=== PATIENT | male | born 1970 | race Caucasian/White ===

== ENCOUNTER 2016-10-29 14:31 | Inpatient (IN) | payer OTHER ==
[~2016-10-29] VITALS: Ht 177.8 cm; Wt 97.3 kg
[2016-10-29] MEDS ORDERED: VANCOMYCIN PER PHARMACY IV ONE (15:30)
[2016-10-29] MEDS ORDERED: PIPERACILLIN/TAZO/PMX 3.375GM 50 ML IVPB ONE (15:30)
[2016-10-29] MEDS ORDERED: SODIUM CHLORIDE FLUSH 10ML SYR IVF ONE (15:30)
[2016-10-29] MEDS ORDERED: MORPHINE SULFATE 4 MG/ML, 1ML IVPush PRN (15:30)
[2016-10-29] MEDS ORDERED: CLINDAMYCIN PMX 900MG/50ML 50 ML IV ONE (15:30)
[2016-10-29] MEDS ORDERED: SODIUM CHLORIDE 0.9% 1,000ML IVBOLUS ONE (15:30)
[2016-10-29] MEDS ORDERED: MORPHINE SULFATE 4 MG/ML, 1ML ONE (15:33)
[2016-10-29] MEDS ORDERED: PIPERACILLIN/TAZO/PMX 3.375GM 50 ML ONE (15:33)
[2016-10-29] MEDS ORDERED: CLINDAMYCIN PMX 900MG/50ML 0 ML ONE (15:34)
[2016-10-29] MEDS ORDERED: VANCOMYCIN 1,500 MG in SODIUM CHLORIDE 0.9% 250 ML IV ONE (16:00)
[2016-10-29] MEDS ORDERED: DIPH,PERTUSS(ACELL),TET VAC/PF 0.5 ML IM-VACC ONE ×2 (16:00→17:11)
[2016-10-29 16:46] LABS: HEMOGLOBIN 13.4 g/dL (13.7-18.0); WHITE BLOOD COUNT 12.7 x10^3/uL (3.4-10)
[2016-10-29 16:54] LABS: ASPARTATE AMINO TRANSFERASE 7 U/L (15-37); BLOOD UREA NITROGEN 10 mg/dL (7-18)
[2016-10-29] MEDS ORDERED: MIDAZOLAM 1 MG/ML, 2ML ONE (17:45)
[2016-10-29] MEDS ORDERED: FENTANYL PF 100 MCG/2ML ONE ×2 (17:45→18:25)
[2016-10-29] MEDS ORDERED: ROCURONIUM 10 MG/ML ONE (17:46)
[2016-10-29] MEDS ORDERED: SUCCINYLCHOLINE 20 MG/ML, 10ML ONE (17:46)
[2016-10-29] MEDS ORDERED: PROPOFOL 10 MG/ML, 20ML ONE (17:46)
[2016-10-29] MEDS ORDERED: DEXAMETHASONE 4 MG/ML, 1ML ONE (17:46)
[2016-10-29] MEDS ORDERED: ONDANSETRON 2MG/ML, 2ML ONE ×2 (17:46→19:52)
[2016-10-29] MEDS ORDERED: CEFAZOLIN 1,000 MG ONE (17:46)
[2016-10-29] MEDS ORDERED: MEPERIDINE/PF 25MG/0.5ML ONE (19:18)
[2016-10-29] MEDS ORDERED: hydrALAzine 20 MG/ML, 1ML IV PRN (19:30)
[2016-10-29] MEDS ORDERED: LABETALOL 5MG/ML, 20ML IV PRN (19:30)
[2016-10-29] MEDS ORDERED: OXYcodone 5 MG/5 ML ORAL.SOL UDC PO PRN (19:30)
[2016-10-29] MEDS ORDERED: ONDANSETRON 2MG/ML, 2ML IVPush PRN ×2 (19:30→21:00)
[2016-10-29] MEDS ORDERED: FENTANYL PF 100 MCG/2ML IV PRN (19:30)
[2016-10-29] MEDS ORDERED: ACETAMINOPHEN 650 MG/20.3 ML UDC ONE (19:30)
[2016-10-29] MEDS ORDERED: HYDROmorphone 1 MG/ML, 1ML IV PRN (19:30)
[2016-10-29] MEDS ORDERED: METOCLOPRAMIDE 5 MG/ML, 2ML IV PRN (19:30)
[2016-10-29] MEDS ORDERED: OXYcodone 5 MG/5 ML ORAL.SOL UDC ONE (19:30)
[2016-10-29] MEDS ORDERED: MEPERIDINE 50 MG TABLET PO PRN (19:30)
[2016-10-29] MEDS ORDERED: ACETAMINOPHEN 325 MG TABLET PO PRN (19:30)
[2016-10-29] MEDS ORDERED: PHARMACOKINETIC MONITORING MC PRN (21:00)
[2016-10-29] MEDS ORDERED: VANCOMYCIN PER PHARMACY MC PRN (21:00)
[2016-10-29] MEDS ORDERED: PHARMACOKINETIC CONSULTATION MC ONE (21:00)
[2016-10-29] MEDS: HYDROmorphone 1 MG/ML, 1ML IV PRN (22:18)
[2016-10-29] MEDS: CLINDAMYCIN PMX 900MG/50ML 50 ML IV SCH (22:18)
[2016-10-29] MEDS: PIPERACILLIN/TAZO/PMX 3.375GM 50 ML IV SCH (23:48)
[2016-10-29] MEDS: D5%-0.9% NACL+KCL 20MEQ 1,000 ML IV SCH (23:51)
[2016-10-30 00:19] VITALS: BP 114/66
[2016-10-30 03:13] VITALS: BP 122/71
[2016-10-30] MEDS ORDERED: VANCOMYCIN 1,500 MG in SODIUM CHLORIDE 0.9% 250 ML IV SCH (04:00)
[2016-10-30] MEDS: HYDROmorphone 1 MG/ML, 1ML IV PRN ×6 (04:44→22:20)
[2016-10-30] MEDS: D5%-0.9% NACL+KCL 20MEQ 1,000 ML IV SCH (05:00)
[2016-10-30 05:37] LABS: HEMATOCRIT 35.3 % (39.2-51.8); HEMOGLOBIN 11.5 g/dL (13.7-18.0); WHITE BLOOD COUNT 10.3 x10^3/uL (3.4-10)
[2016-10-30 05:41] LABS: ASPARTATE AMINO TRANSFERASE 6 U/L (15-37); BLOOD UREA NITROGEN 12 mg/dL (7-18)
[2016-10-30] MEDS: PIPERACILLIN/TAZO/PMX 3.375GM 50 ML IV SCH ×3 (07:19→19:45)
[2016-10-30 07:57] VITALS: BP 130/74
[2016-10-30] MEDS: CLINDAMYCIN PMX 900MG/50ML 50 ML IV SCH ×2 (08:31→15:01)
[2016-10-30] MEDS: OXYcodone/APAP 7.5/325MG TABLET PO PRN ×4 (09:21→23:32)
[2016-10-30] MEDS: SODIUM CHLORIDE FLUSH 10ML SYR IVF SCH ×2 (09:21→19:45)
[2016-10-30 14:15] VITALS: BP 105/60
[2016-10-30 20:02] VITALS: BP 107/63
[2016-10-30] MEDS: VANCOMYCIN 1,900 MG in SODIUM CHLORIDE 0.9% 250 ML IV SCH (22:09)
[2016-10-31] MEDS: CLINDAMYCIN PMX 900MG/50ML 50 ML IV SCH ×3 (00:32→18:24)
[2016-10-31 00:57] VITALS: BP 100/62
[2016-10-31] MEDS: PIPERACILLIN/TAZO/PMX 3.375GM 50 ML IV SCH ×4 (02:03→19:44)
[2016-10-31] MEDS: HYDROmorphone 1 MG/ML, 1ML IV PRN ×7 (02:03→22:40)
[2016-10-31] MEDS: OXYcodone/APAP 7.5/325MG TABLET PO PRN ×5 (03:46→21:34)
[2016-10-31 05:50] LABS: HEMATOCRIT 33.9 % (39.2-51.8); HEMOGLOBIN 11.1 g/dL (13.7-18.0); WHITE BLOOD COUNT 8.8 x10^3/uL (3.4-10)
[2016-10-31 08:08] VITALS: BP 122/74
[2016-10-31] MEDS: SODIUM CHLORIDE FLUSH 10ML SYR IVF SCH ×2 (09:12→19:47)
[2016-10-31 13:42] VITALS: BP 123/67
[2016-10-31] MEDS: VANCOMYCIN 1,900 MG in SODIUM CHLORIDE 0.9% 250 ML IV SCH (16:33)
[2016-10-31 21:16] VITALS: BP 114/57
[2016-11-01] MEDS: OXYcodone/APAP 7.5/325MG TABLET PO PRN ×3 (01:35→09:32)
[2016-11-01] MEDS: HYDROmorphone 1 MG/ML, 1ML IV PRN ×3 (01:35→07:43)
[2016-11-01] MEDS: PIPERACILLIN/TAZO/PMX 3.375GM 50 ML IV SCH ×2 (01:35→07:43)
[2016-11-01] MEDS: CLINDAMYCIN PMX 900MG/50ML 50 ML IV SCH ×2 (02:00→10:00)
[2016-11-01 02:08] VITALS: BP 124/73
[2016-11-01 07:23] VITALS: BP 113/72
[2016-11-01] MEDS: SODIUM CHLORIDE FLUSH 10ML SYR IVF SCH (09:00)
[2016-11-01] MEDS: VANCOMYCIN 1,900 MG in SODIUM CHLORIDE 0.9% 250 ML IV SCH (10:00)
[2016-11-01 10:11] VITALS: BP 145/74
[2016-11-01] MEDS ORDERED: OXYC-306 PO (11:40)
== END 2016-11-01 11:52 | disposition home or self-care (01) | DRG 853 ==
LOC: ED 17:05 → EDIP 17:06 → ED 17:12 → 4NOR 20:31 → DCLOUNGE 11-01 11:31
PROVIDERS: ADMIT Surgery; ATTEND Surgery
PROC: 0JBM0ZZ Excision of Left Upper Leg Subcutaneous Tissue and Fascia, Open Approach (ICD-10-PCS; principal; 2016-10-29 15:30)
DX: A41.9 Sepsis, unspecified organism (principal); M72.6 Necrotizing fasciitis; L02.416 Cutaneous abscess of left lower limb; F15.10 Other stimulant abuse, uncomplicated; B18.2 Chronic viral hepatitis C; E87.6 Hypokalemia; F17.210 Nicotine dependence, cigarettes, uncomplicated; F19.10 Other psychoactive substance abuse, uncomplicated; R65.20 Severe sepsis without septic shock; Z59.0 Homelessness
CPT/HCPCS: 36415; 71010; 80053; 83605; 84145; 85025; 85610; 85730; 87040; 87070; 87075; 87077; 87205; 90471; 90715; 96365; 96375; J0690; J1100; J1170; J2250; J2405; J2543; J2704; J3010; J3370; J0330; J3480; J7030; J7050

== ENCOUNTER 2016-12-10 15:07 | Inpatient (IN) | payer MEDICAID, OTHER ==
[~2016-12-10] VITALS: Ht 180.3 cm; Wt 94.5 kg
[~2016-12-10 15:07] MED LIST: OXYC-306 PO
[2016-12-10] MEDS ORDERED: SODIUM CHLORIDE 0.9% 1,000 ML IV ONE (15:42)
[2016-12-10] MEDS ORDERED: CEFTRIAXONE PMX 1GM/50ML 50 ML IVPB ONE (16:00)
[2016-12-10] MEDS ORDERED: SODIUM CHLORIDE FLUSH 10ML SYR IVF ONE ×2 (16:00→18:00)
[2016-12-10] MEDS ORDERED: SODIUM CHLORIDE 0.9% 1,000ML IVBOLUS ONE ×2 (16:00→18:00)
[2016-12-10] MEDS ORDERED: VANCOMYCIN PER PHARMACY MC ONE (16:00)
[2016-12-10] MEDS ORDERED: ONDANSETRON 2MG/ML, 2ML IVPush ONE (16:00)
[2016-12-10 16:28] LABS: HEMATOCRIT 37.8 % (39.2-51.8); HEMOGLOBIN 12.8 g/dL (13.7-18.0)
[2016-12-10 16:33] LABS: BLOOD UREA NITROGEN 10 mg/dL (7-18)
[2016-12-10] MEDS ORDERED: VANCOMYCIN 1,800 MG in SODIUM CHLORIDE 0.9% 250 ML IV ONE (17:00)
[2016-12-10] MEDS ORDERED: CEFTRIAXONE PMX 1GM/50ML 50 ML ONE (17:10)
[2016-12-10] MEDS ORDERED: HYDROmorphone 1 MG/ML, 1ML ONE ×3 (17:11→20:19)
[2016-12-10] MEDS: HYDROmorphone 1 MG/ML, 1ML IVPush PRN ×2 (17:33→17:55)
[2016-12-10] MEDS ORDERED: FENTANYL PF 100 MCG/2ML ONE ×2 (18:10)
[2016-12-10] MEDS ORDERED: PROPOFOL 10 MG/ML, 20ML ONE (18:10)
[2016-12-10] MEDS ORDERED: MIDAZOLAM 1 MG/ML, 2ML ONE (18:10)
[2016-12-10] MEDS ORDERED: SUCCINYLCHOLINE 20 MG/ML, 10ML ONE (18:10)
[2016-12-10] MEDS ORDERED: KETAMINE 10 MG/ML, 20ML ONE (18:10)
[2016-12-10] MEDS ORDERED: LIDOCAINE-MPF 2% ,5ML ONE (18:11)
[2016-12-10] MEDS ORDERED: ROCURONIUM 10 MG/ML ONE (18:11)
[2016-12-10] MEDS ORDERED: ONDANSETRON 2MG/ML, 2ML ONE (18:11)
[2016-12-10] MEDS ORDERED: OXYcodone 5 MG/5 ML ORAL.SOL UDC ONE (19:46)
[2016-12-10] MEDS ORDERED: PROMETHAZINE 25 MG/ML, 1ML IV PRN (20:00)
[2016-12-10] MEDS ORDERED: FENTANYL PF 100 MCG/2ML IV PRN (20:00)
[2016-12-10] MEDS ORDERED: KETOROLAC 30 MG/1 ML IV PRN (20:00)
[2016-12-10] MEDS ORDERED: OXYcodone 5 MG/5 ML ORAL.SOL UDC PO PRN (20:00)
[2016-12-10] MEDS ORDERED: ACETAMINOPHEN 325 MG TABLET PO PRN (20:00)
[2016-12-10] MEDS ORDERED: MEPERIDINE/PF 25MG/0.5ML IVPush PRN (20:00)
[2016-12-10] MEDS ORDERED: ONDANSETRON 2MG/ML, 2ML IVPush PRN (20:00)
[2016-12-10] MEDS: HYDROmorphone 1 MG/ML, 1ML IV PRN ×4 (20:21→23:13)
[2016-12-10 22:26] VITALS: BP 131/83
[2016-12-11] MEDS: LORazepam 2 MG/ML, 1ML IV PRN ×2 (00:09→23:21)
[2016-12-11] MEDS: OXYcodone/APAP 5/325MG TABLET PO PRN ×6 (00:09→21:23)
[2016-12-11 00:24] VITALS: BP 123/73
[2016-12-11 03:34] VITALS: BP 111/69
[2016-12-11] MEDS: CEFTRIAXONE PMX 1GM/50ML 50 ML IV SCH ×2 (04:38→16:44)
[2016-12-11] MEDS: HYDROmorphone 1 MG/ML, 1ML IV PRN ×7 (05:31→23:21)
[2016-12-11 07:30] VITALS: BP 122/81
[2016-12-11 07:42] VITALS: BP 118/73
[2016-12-11 09:48] LABS: HEMATOCRIT 33.9 % (39.2-51.8); HEMOGLOBIN 11.2 g/dL (13.7-18.0); WHITE BLOOD COUNT 12.6 x10^3/uL (3.4-10)
[2016-12-11 10:01] LABS: ASPARTATE AMINO TRANSFERASE 14 U/L (15-37); BLOOD UREA NITROGEN 11 mg/dL (7-18)
[2016-12-11] MEDS ORDERED: POTASSIUM CHLORIDE 20 MEQ TAB.ER.PRT PO ONE (12:00)
[2016-12-11 16:08] VITALS: BP 97/56
[2016-12-11 19:38] VITALS: BP 115/72
[2016-12-12 00:35] VITALS: BP 130/76
[2016-12-12] MEDS: CEFTRIAXONE PMX 1GM/50ML 50 ML IV SCH (04:19)
[2016-12-12] MEDS: HYDROmorphone 1 MG/ML, 1ML IV PRN ×5 (04:20→13:54)
[2016-12-12] MEDS: OXYcodone/APAP 5/325MG TABLET PO PRN ×3 (06:33→14:06)
[2016-12-12 07:25] VITALS: BP 125/80
[2016-12-12] MEDS: LORazepam 2 MG/ML, 1ML IV PRN (10:05)
[2016-12-12] MEDS ORDERED: PHARMACOKINETIC CONSULTATION MC ONE (11:30)
[2016-12-12] MEDS ORDERED: LIDOCAINE 2%, 2ML INFIL ONE (11:30)
[2016-12-12] MEDS ORDERED: VANCOMYCIN PER PHARMACY MC PRN (11:30)
[2016-12-12] MEDS ORDERED: PHARMACOKINETIC MONITORING MC PRN (11:30)
[2016-12-12] MEDS ORDERED: LIDOCAINE GEL 2%, 5ML TP ONE (12:00)
[2016-12-12] MEDS ORDERED: VANCOMYCIN 1,600 MG in SODIUM CHLORIDE 0.9% 250 ML IV SCH (13:00)
[2016-12-12 14:04] VITALS: BP 119/74
[2016-12-12] MEDS ORDERED: MIDAZOLAM 1 MG/ML, 2ML ONE (15:11)
[2016-12-12] MEDS ORDERED: LIDOCAINE GEL 2%, 5ML ONE (15:11)
[2016-12-12] MEDS ORDERED: FENTANYL PF 500 MCG/10ML ONE ×2 (15:11→15:47)
[2016-12-12] MEDS ORDERED: ONDANSETRON 2MG/ML, 2ML ONE (15:12)
[2016-12-12] MEDS ORDERED: DEXAMETHASONE 4 MG/ML, 1ML ONE (15:12)
[2016-12-12] MEDS ORDERED: PROPOFOL 10 MG/ML, 20ML ONE (15:12)
[2016-12-12] MEDS ORDERED: MIDAZOLAM 1 MG/ML, 2ML IV PRN (15:30)
[2016-12-12] MEDS ORDERED: ALBUTEROL/IPRATROPIUM 2.5MG/0.5MG, 3 ML NPPB PRN (15:30)
[2016-12-12] MEDS ORDERED: MEPERIDINE/PF 25MG/0.5ML IVPush PRN (15:30)
[2016-12-12] MEDS ORDERED: LORazepam 2 MG/ML, 1ML IVPush PRN (15:30)
[2016-12-12] MEDS ORDERED: HYDROmorphone 1 MG/ML, 1ML IV PRN (15:30)
[2016-12-12] MEDS ORDERED: METOCLOPRAMIDE 5 MG/ML, 2ML IV PRN (15:30)
[2016-12-12] MEDS ORDERED: LABETALOL 5MG/ML, 20ML IV PRN (15:30)
[2016-12-12] MEDS ORDERED: PROMETHAZINE 25 MG/ML, 1ML IV PRN (15:30)
[2016-12-12] MEDS ORDERED: ONDANSETRON 2MG/ML, 2ML IVPush PRN (15:30)
[2016-12-12] MEDS ORDERED: hydrALAzine 20 MG/ML, 1ML IV PRN (15:30)
[2016-12-12] MEDS ORDERED: OXYcodone 5 MG/5 ML ORAL.SOL UDC PO PRN (15:30)
[2016-12-12] MEDS ORDERED: DIAZEPAM 5 MG/ML, 2ML IVPush PRN (15:30)
[2016-12-12] MEDS ORDERED: ACETAMINOPHEN 325 MG TABLET PO PRN (15:30)
[2016-12-12] MEDS ORDERED: FENTANYL PF 100 MCG/2ML ONE (16:00)
[2016-12-12] MEDS: FENTANYL PF 100 MCG/2ML IV PRN ×2 (16:30→16:37)
[2016-12-12] MEDS ORDERED: ACETAMINOPHEN 650 MG/20.3 ML UDC ONE (16:32)
[2016-12-12] MEDS ORDERED: OXYcodone 5 MG/5 ML ORAL.SOL UDC ONE (16:33)
== END 2016-12-12 17:42 | disposition left against medical advice (07) | DRG 854 ==
LOC: ED 17:48 → EDIP 17:49 → ED 18:03 → 4NOR 20:50
PROVIDERS: ADMIT Internal Medicine; ATTEND Internal Medicine
PROC: 0JB90ZZ Excision of Buttock Subcutaneous Tissue and Fascia, Open Approach (ICD-10-PCS; principal; 2016-12-10 18:15)
PROC: 0JB90ZZ Excision of Buttock Subcutaneous Tissue and Fascia, Open Approach (ICD-10-PCS; 2016-12-12)
DX: A41.9 Sepsis, unspecified organism (principal); L02.31 Cutaneous abscess of buttock; E44.0 Moderate protein-calorie malnutrition; E87.1 Hypo-osmolality and hyponatremia; F11.20 Opioid dependence, uncomplicated; R65.20 Severe sepsis without septic shock; D64.9 Anemia, unspecified; E87.6 Hypokalemia; F15.10 Other stimulant abuse, uncomplicated; D47.3 Essential (hemorrhagic) thrombocythemia; Z87.891 Personal history of nicotine dependence; F19.10 Other psychoactive substance abuse, uncomplicated; F15.90 Other stimulant use, unspecified, uncomplicated
CPT/HCPCS: 36415; 72170; 80048; 80053; 82040; 83605; 85025; 85610; 85730; 87015; 87040; 87070; 87075; 87102; 87116; 87205; 87206; 96365; 96375; J0696; J1100; J1170; J2250; J2405; J2704; J3010; J3370; J3490; J0330; J2060; J7030; J7050

== ENCOUNTER 2018-03-29 23:23 | Emergency (ER) | payer SELFPAY ==
[~2018-03-29] VITALS: Ht 180.3 cm; Wt 86.3 kg
[2018-03-29 23:29] VITALS: BP 145/84
--- NOTE | 2018-03-29 23:36 | NUR ---
PT AMBULATED WITH STEADY GAIT TO ROOM FROM TRIAGE.
--- NOTE | 2018-03-29 23:48 | NUR ---
PT REPORTS HE SLIPPED DOWN SOME STEEP STAIRS A FEW HOURS AGO, LANDED ON HIS BUTTOCK, DENIES HITTING HIS HEAD. PT REPORTS PRIOR CHRONIC BACK PAIN SINCE AN ACCIDENT IN THE PAST BUT THIS BACK PAIN IS "MUCH WORSE." PT SITTING UP IN BED, APPEARS TO BE PAINFUL. PT REPORTS PAIN WITH MOVEMENT. PT A/OX4, BREATHING E/U. PT AWAITING MD PYLE.
--- NOTE | 2018-03-29 23:52 | NUR ---
PROVIDER TO BEDSIDE FOR PT EVAL COMPLETE. AWAITING ORDERS.
[2018-03-30] MEDS ORDERED: METHOCARBAMOL 750 MG TABLET PO ONE
[2018-03-30] MEDS ORDERED: KETOROLAC 30 MG/1 ML IM ONE
[2018-03-30] MEDS ORDERED: KETOROLAC 30 MG/1 ML ONE (00:10)
[2018-03-30] MEDS ORDERED: METHOCARBAMOL 750 MG TABLET ONE (00:10)
--- NOTE | 2018-03-30 00:24 | NUR ---
PT RECIEVED MEDS PER ORDERS, SEE EMAR. PT TOLERATED WELL. PT SITTING UP IN CHAIR AT BEDSIDE WATCHING TV. AWAITING IMAGING RESULTS. WILL MONITOR.
--- NOTE | 2018-03-30 00:27 | NUR ---
report to josefina curran for lunch relief.
--- NOTE | 2018-03-30 01:04 | NUR ---
REPORT FROM JACE GOODE. IMAGING RESULTED. PT PLACED FOR RECHECK.
--- NOTE | 2018-03-30 01:07 | NUR ---
PROVIDER TO BEDSIDE FOR UPDATE.
[2018-03-30] MEDS ORDERED: HYDROcodone/APAP 5/325 TABLET ONE (01:12)
--- NOTE | 2018-03-30 01:14 | NUR ---
PT RECIEVED NORCO PER ORDERS, SEE EMAR. PT TO BE MONITORED FOR 15 MINS PRIOR TO LEAVING. PT VERBALIZED UNDERSTANDING OF D/C INSTRUCTIONS AND MEDS.
[2018-03-30] MEDS ORDERED: HYDROcodone/APAP 5/325 TABLET PO ONE (01:30)
== END 2018-03-30 01:33 | disposition home or self-care (01) ==
LOC: ED 23:48
DX: S39.012A Strain of muscle, fascia and tendon of lower back, initial encounter (principal); Z72.9 Problem related to lifestyle, unspecified; Z86.19 Personal history of other infectious and parasitic diseases; Z87.891 Personal history of nicotine dependence; W10.8XXA Fall (on) (from) other stairs and steps, initial encounter; Y93.89 Activity, other specified; Y92.89 Other specified places as the place of occurrence of the external cause; Y99.8 Other external cause status
CPT/HCPCS: 72110; 96372; 99283; J1885

== ENCOUNTER 2018-04-07 14:57 | Emergency (ER) | payer SELFPAY ==
[~2018-04-07] VITALS: Ht 177.8 cm; Wt 82.0 kg
[2018-04-07 15:18] VITALS: BP 152/100
[2018-04-07] MEDS ORDERED: KETOROLAC 30 MG/1 ML ONE (15:59)
[2018-04-07] MEDS ORDERED: HYDROcodone/APAP 5/325 TABLET ONE (15:59)
[2018-04-07] MEDS ORDERED: CYCLOBENZAPRINE 10 MG TABLET ONE (15:59)
[2018-04-07] MEDS ORDERED: CYCLOBENZAPRINE 10 MG TABLET PO ONE (16:00)
[2018-04-07] MEDS ORDERED: KETOROLAC 30 MG/1 ML IM ONE (16:00)
[2018-04-07] MEDS ORDERED: HYDROcodone/APAP 5/325 TABLET PO ONE (16:00)
== END 2018-04-07 16:36 | disposition home or self-care (01) ==
LOC: ED 16:30
DX: G89.11 Acute pain due to trauma (principal); M54.6 Pain in thoracic spine; M54.2 Cervicalgia; Z87.891 Personal history of nicotine dependence; Z86.19 Personal history of other infectious and parasitic diseases; W19.XXXA Unspecified fall, initial encounter; Y93.89 Activity, other specified; Y92.89 Other specified places as the place of occurrence of the external cause; Y99.8 Other external cause status
CPT/HCPCS: 72050; 73030; 96372; 99283; J1885

== ENCOUNTER 2018-05-18 12:53 | Inpatient (IN) | payer OTHER ==
[~2018-05-18] VITALS: Ht 177.8 cm; Wt 80.4 kg
[2018-05-18] MEDS ORDERED: PIPERACILLIN/TAZO/PMX 3.375GM 50 ML IVPB ONE (13:30)
[2018-05-18] MEDS ORDERED: HYDROmorphone 1 MG/ML, 1ML IVPush PRN (13:30)
[2018-05-18] MEDS ORDERED: VANCOMYCIN PER PHARMACY MC ONE (13:30)
[2018-05-18 13:55] LABS: BASOPHILS # (AUTO) 0.03 x10^3/uL (0-0.1); BASOPHILS % (AUTO) 0 % (0-1); EOSINOPHILS # (AUTO) 0.12 x10^3/uL (0-0.4); EOSINOPHILS % (AUTO) 1 % (1-7); LYMPHOCYTES # (AUTO) 1.29 x10^3/uL (1-3.4); LYMPHOCYTES % (AUTO) 9 % (22-44); MD NO; MEAN CORPUSCULAR HEMOGLOBIN 30.2 pg (27.5-34.5); MEAN CORPUSCULAR HGB CONC 33.8 g/dL (33.2-36.2); MEAN CORPUSCULAR VOLUME 89.6 fL (81-97); MEAN PLATELET VOLUME 7.5 fL (7.4-10.4); MONOCYTES # (AUTO) 0.71 x10^3/uL (0.2-0.8); MONOCYTES % (AUTO) 5 % (2-9); NEUTROPHILS # (AUTO) 11.76 x10^3/uL (1.8-6.8); NEUTROPHILS % (AUTO) 85 % (42-75); PLATELET COUNT 450 x10^3/uL (130-400); RED CELL DISTRIBUTION WIDTH 13.7 % (9.4-14.8)
[2018-05-18] MEDS ORDERED: VANCOMYCIN 1,600 MG in SODIUM CHLORIDE 0.9% 250 ML IV ONE (14:00)
[2018-05-18 14:06] LABS: ALANINE AMINOTRANSFERASE 17 U/L (12-78); ALBUMIN 2.5 g/dL (3.4-5.0); ANION GAP 7 mmol/L (5-15); CALCIUM 8.5 mg/dL (8.5-10.1); CHLORIDE 101 mmol/L (98-107); CREATININE 1.17 mg/dL (0.7-1.3)
[2018-05-18 14:08] LABS: ALKALINE PHOSPHATASE 97 U/L (45-117); BILIRUBIN,TOTAL 0.4 mg/dL (0.2-1.0); TOTAL PROTEIN 8.2 g/dL (6.4-8.2)
--- NOTE | 2018-05-18 15:06 | NUR ---
RN followed up with lab regarding second blood culture. Lab to come draw.
--- NOTE | 2018-05-18 15:52 | NUR ---
i am assuming care of this pt from chad (bina) at this time. sbar report was exchanged at the bedside.
--- NOTE | 2018-05-18 16:02 | NUR ---
TASK RN: PT IS RESTING IN ROOM WITH NADN, EQUAL CHEST RISE AND GOOD CAP REFILL, NADN. NO NEEDS AT THIS TIME.
[2018-05-18] MEDS ORDERED: PROPOFOL 10 MG/ML, 20ML ONE (16:47)
[2018-05-18] MEDS ORDERED: ETOMIDATE 20 MG/10 ML ONE (16:47)
[2018-05-18] MEDS ORDERED: ETOMIDATE 20 MG/10 ML IVPush ONE (17:00)
[2018-05-18 17:26] LABS: HCT (SEDRATE) 34.9 % (39.2-51.8)
[2018-05-18] MEDS ORDERED: LABETALOL 5MG/ML, 20ML IVPush PRN (17:30)
[2018-05-18] MEDS ORDERED: morphine SULFATE 10 MG/ML, 1ML IVPush PRN (17:30)
[2018-05-18] MEDS ORDERED: hydrALAzine 20 MG/ML, 1ML IVPush PRN (17:30)
[2018-05-18] MEDS ORDERED: ACETAMINOPHEN 325 MG TABLET PO PRN (17:30)
[2018-05-18] MEDS ORDERED: VANCOMYCIN PER PHARMACY MC PRN (17:30)
[2018-05-18] MEDS ORDERED: ONDANSETRON 2MG/ML, 2ML IVPush PRN (17:30)
--- NOTE | 2018-05-18 17:41 | NUR ---
I AM ASSUMING CARE OF THIS PT FROM JACE KNOX) AT THIS TIME. SBAR REPORT WAS EXCHANGED AT THE BEDSIDE.
--- NOTE | 2018-05-18 17:59 | NUR ---
PT IS SLEEPING SONOROUSLY ON AN E.R. GURNEY WHILE AWAITING A ROOM ASSIGNMENT FOR ADMISSION. VS ARE STABLE, AND THERE ARE NO ACUTE CHANGES NOTED AT THIS TIME. I WILL CONTINUE TO MONITOR AND TREAT ORDERED, WELL PRN WHILE AWAITING A ROOM ASSIGNMENT FOR ADMISSION.
--- NOTE | 2018-05-18 18:04 | NUR ---
PORCEDURAL SEDATION RN: PT TOLERATED PROCEDURE WELL. A TOTAL OF 240MG OF PROPAFOL WITH 10MG OF ETOMIDATE WERE USED TO SEDATE PT. PT WAS ON ALL MONITORS WITH ETCO2 CONNECTED. PTS VITALS REMAIN STABLE AND NADN. PT RECOVERED VERY QUICKLY AND ABLE TO TAKE SIPS. PTS AIRWAY WAS NEVER COMPROMISED. PT HAD 4 I/DS AND WHICH WERE PACKED AND 1/2" GAUZE AND DRESSED WITH TAPE AND GAUZE. PLEASE SEE MD NOTES IN REGARDS TO PACKING. PT CONNECTED TO MONITORS AND CALL LIGHT IN REACH. PT REPORT GIVEN TO LILI GOODE WHO ASSUMED CARE AT THE END OF RECOVERY.
[2018-05-18] MEDS ORDERED: CEFAZOLIN PMX 1GM/50ML 50 ML ONE (18:38)
[2018-05-18] MEDS ORDERED: PIPERACILLIN/TAZO/PMX 3.375GM 50 ML ONE (18:56)
--- NOTE | 2018-05-18 18:57 | NUR ---
GREG (RN) IS ASSUMING CARE OF THIS PT AT THIS TIME. SBAR REPORT WAS EXCHANGED AT THE BEDSIDE.
[2018-05-18 19:05] VITALS: BP 134/80
--- NOTE | 2018-05-18 19:07 | NUR ---
REPORT RECIEVED FROM RUSSEL PEARSON. ASSUMED CARE OF PT, IS ON CARDIACE MONITOR RESTING WITH EYES CLOSED, SOFT SNORING HEARD. ANTIBIOTIC STARTED, CALL LIGHT IN REACH
--- NOTE | 2018-05-18 19:38 | NUR ---
REPORT GIVEN TO RUSSEL PAPPAS
[2018-05-18] MEDS ORDERED: PHARMACOKINETIC MONITORING MC PRN (20:30)
[2018-05-18 20:35] LABS: AMPHETAMINE SCREEN, URINE Positive (Negative); BARBITURATE SCREEN, URINE Negative (Negative); BENZODIAZEPINE SCREEN, URINE Negative (Negative); CANNABINOID SCREEN, URINE Negative (Negative); COCAINE SCREEN, URINE Negative (Negative); METHADONE SCREEN, URINE Negative (Negative); OPIATE SCREEN, URINE Positive (Negative)
[2018-05-18 21:55] VITALS: BP 137/68
[2018-05-18] MEDS: SODIUM CHLORIDE 0.9% 1,000 ML IV SCH ×2 (22:17)
[2018-05-18] MEDS: HEPARIN 5,000 UNITS/ML, 1ML SQ SCH (22:17)
[2018-05-18] MEDS: HYDROcodone/APAP 5/325 TABLET PO PRN (23:47)
[2018-05-19] MEDS: SODIUM CHLORIDE 0.9% 1,000 ML IV SCH ×4 (00:29→11:31)
[2018-05-19 01:43] VITALS: BP 114/68
[2018-05-19] MEDS: HEPARIN 5,000 UNITS/ML, 1ML SQ SCH ×3 (03:48→20:00)
[2018-05-19] MEDS: PIPERACILLIN/TAZO/PMX 3.375GM 50 ML IV SCH ×2 (03:48→11:30)
[2018-05-19] MEDS: HYDROcodone/APAP 5/325 TABLET PO PRN ×4 (09:42→23:37)
[2018-05-19 14:00] VITALS: BP 126/72
[2018-05-19] MEDS: VANCOMYCIN 1,600 MG in SODIUM CHLORIDE 0.9% 250 ML IV SCH (15:10)
[2018-05-19 19:03] VITALS: BP 104/64
[2018-05-20] MEDS: PIPERACILLIN/TAZO/PMX 3.375GM 50 ML IV SCH ×4 (00:55→20:23)
[2018-05-20] MEDS: SODIUM CHLORIDE 0.9% 1,000 ML IV SCH (00:55)
[2018-05-20 01:29] VITALS: BP 116/64
[2018-05-20] MEDS: VANCOMYCIN 1,600 MG in SODIUM CHLORIDE 0.9% 250 ML IV SCH ×2 (02:36→15:00)
[2018-05-20] MEDS: HEPARIN 5,000 UNITS/ML, 1ML SQ SCH ×3 (04:09→20:00)
[2018-05-20] MEDS: HYDROcodone/APAP 5/325 TABLET PO PRN ×4 (05:09→23:19)
[2018-05-20 08:16] VITALS: BP 118/70
[2018-05-20] MEDS ORDERED: LORazepam 2 MG/ML, 1ML IM PRN (10:30)
[2018-05-20] MEDS ORDERED: LORazepam 1MG TABLET PO PRN (10:30)
[2018-05-20 13:48] VITALS: BP 110/74
[2018-05-20] MEDS ORDERED: SODIUM CHLORIDE 0.9% 1,000 ML IV SCH (17:11)
[2018-05-20 20:46] VITALS: BP 109/64
[2018-05-21 02:02] VITALS: BP 114/72
[2018-05-21] MEDS: VANCOMYCIN 1,600 MG in SODIUM CHLORIDE 0.9% 250 ML IV SCH (02:30)
[2018-05-21] MEDS: HEPARIN 5,000 UNITS/ML, 1ML SQ SCH ×2 (04:00→11:50)
[2018-05-21] MEDS: PIPERACILLIN/TAZO/PMX 3.375GM 50 ML IV SCH ×2 (04:12→11:50)
[2018-05-21] MEDS: HYDROcodone/APAP 5/325 TABLET PO PRN ×3 (04:15→12:28)
[2018-05-21 08:18] VITALS: BP 130/79
== END 2018-05-21 16:04 | disposition left against medical advice (07) | DRG 872 ==
LOC: ED 13:54 → EDIP 17:29 → 4EST 19:57
PROVIDERS: ADMIT Hospitalist; ATTEND Hospitalist
PROC: 0X970ZZ Drainage of Left Upper Extremity, Open Approach (ICD-10-PCS; principal; 2018-05-18)
PROC: 0X960ZZ Drainage of Right Upper Extremity, Open Approach (ICD-10-PCS; 2018-05-18)
PROC: 0Y910ZZ Drainage of Left Buttock, Open Approach (ICD-10-PCS; 2018-05-18)
PROC: 0Y9C0ZZ Drainage of Right Upper Leg, Open Approach (ICD-10-PCS; 2018-05-18)
DX: A41.9 Sepsis, unspecified organism (principal); L02.413 Cutaneous abscess of right upper limb; L02.415 Cutaneous abscess of right lower limb; L02.416 Cutaneous abscess of left lower limb; L02.414 Cutaneous abscess of left upper limb; E44.0 Moderate protein-calorie malnutrition; E87.1 Hypo-osmolality and hyponatremia; F11.23 Opioid dependence with withdrawal; L03.115 Cellulitis of right lower limb; L03.116 Cellulitis of left lower limb; D64.9 Anemia, unspecified; Z68.25 Body mass index [BMI] 25.0-25.9, adult; E86.1 Hypovolemia; Z87.891 Personal history of nicotine dependence; R73.9 Hyperglycemia, unspecified; B19.20 Unspecified viral hepatitis C without hepatic coma; Z71.51 Drug abuse counseling and surveillance of drug abuser; Z53.21 Procedure and treatment not carried out due to patient leaving prior to being seen by health care provider
CPT/HCPCS: 10061; 36415; 72192; 80053; 80307; 83605; 84145; 85025; 85651; 87040; 87070; 87077; 87181; 87186; 87205; 93306; 96365; 96366; 96375; 99285; G0378; J2543; J3370; J7030; J7050